=== PATIENT | female | born 1995 | race Hispanic/Latino ===

== ENCOUNTER 2020-10-14 21:51 | Emergency (ER) | payer OTHER ==
[~2020-10-14] VITALS: Ht 162.6 cm; Wt 66.0 kg
[2020-10-15] MEDS ORDERED: diphenhydrAMINE 50MG/ML VIAL (J1200) IV STA (01:07)
[2020-10-15] MEDS ORDERED: KETOROLAC 30 MG/ML 1ML VIAL IV ONE (01:10)
[2020-10-15] MEDS ORDERED: NS 500 ML IV ONE (01:10)
[2020-10-15] MEDS ORDERED: ONDANSETRON 4MG/2ML VIAL IV ONE (01:10)
[2020-10-15 02:19] LABS: BASO % 0.4 % (0.0-1.0); EOS % 0.3 % (0.0-3.0); HEMATOCRIT 41.9 % (36.0-47.0); LYMPH # 3.1 10^3/uL (1.5-5.0); LYMPH % 28.8 % (24.0-44.0); MEAN CORPUSCULAR HEMOGLOBIN 30.9 pg (27.0-33.0); MEAN CORPUSCULAR HGB CONC 33.4 g/dl (32.0-36.5); MEAN CORPUSCULAR VOLUME 92.5 fl (80.0-96.0); MONO # 0.9 10^3/uL (0.0-0.8); MONO % 8.2 % (2.0-8.0); NEUTROPHILS # 6.6 10^3/uL (1.5-8.5); NEUTROPHILS % 62.1 % (36.0-66.0); PLATELET COUNT, AUTOMATED 296 10^3/uL (150-450); RED BLOOD COUNT 4.53 10^6/uL (4.00-5.40); WHITE BLOOD COUNT 10.7 10^3/uL (4.0-10.0)
[2020-10-15 02:59] LABS: BLOOD UREA NITROGEN 9 MG/DL (7-18); CARBON DIOXIDE LEVEL 26 MEQ/L (21-32); CHLORIDE LEVEL 109 MEQ/L (98-107); CREATININE FOR GFR 0.56 MG/DL (0.55-1.30); FREE T4 1.18 NG/DL (0.76-1.46); GLOMERULAR FILTRATION RATE > 60.0 (>60); GLUCOSE, FASTING 81 MG/DL (70-100); MAGNESIUM LEVEL 2.2 MG/DL (1.8-2.4); POTASSIUM SERUM 4.7 MEQ/L (3.5-5.1); SODIUM LEVEL 141 MEQ/L (136-145)
[2020-10-15 03:06] LABS: AMPHETAMINES LEVEL URINE NEGATIVE (NEGATIVE); BARBITURATES URINE NEGATIVE (NEGATIVE); BENZODIAZEPINES URINE NEGATIVE (NEGATIVE); CANNABINOIDS URINE NEGATIVE (NEGATIVE); COCAINE METABOLITE URINE NEGATIVE (NEGATIVE); METHADONE URINE NEGATIVE (NEGATIVE); OPIATES URINE NEGATIVE (NEGATIVE); PHENCYCLIDINE URINE NEGATIVE (NEGATIVE)
--- NOTE | 2020-10-15 04:12 | REPVR ---
PROCEDURE INFORMATION: Exam: CT Head Without Contrast Exam date and time: 10/15/2020 2:48 AM Age: 25 years old Clinical indication: Pain; Headache not specified; Additional info: Worsening headaches TECHNIQUE: Imaging protocol: Computed tomography of the head without contrast. Radiation optimization: All CT scans at this facility use at least one of these dose optimization techniques: automated exposure control; mA and/or kV adjustment per patient size (includes targeted exams where dose is matched to clinical indication); or iterative reconstruction. COMPARISON: No relevant prior studies available. FINDINGS: Brain: Normal. No hemorrhage. Unremarkable white matter. No mass effect. Cerebral ventricles: No ventriculomegaly. Paranasal sinuses: Visualized sinuses are unremarkable. No fluid levels. Mastoid air cells: Visualized mastoid air cells are well aerated. Bones/joints: Unremarkable. No acute fracture. Soft tissues: Unremarkable. IMPRESSION: No acute intracranial abnormality. Electronically signed by: Jerzy Vasquez On 10/15/2020 03:29:00 AM
[2020-10-15 05:10] VITALS: BP 116/72
== END 2020-10-15 05:10 | disposition home or self-care (01) ==
LOC: M ED 21:51
DX: G43.909 Migraine, unspecified, not intractable, without status migrainosus (principal); Z88.2 Allergy status to sulfonamides
CPT/HCPCS: 70450; 80048; 80307; 81001; 83735; 84439; 84443; 84702; 85025; 87088; 87186; 96361; 96374; 96375; 99284; J1200; J1885; J2405

== ENCOUNTER 2021-03-22 02:38 | Emergency (ER) | payer OTHER ==
[~2021-03-22] VITALS: Ht 162.6 cm; Wt 65.9 kg
[2021-03-22] MEDS ORDERED: PYRI25TA2 PO (02:51)
[2021-03-22] MEDS ORDERED: MULTTAB20 PO (02:51)
[2021-03-22 03:59] LABS: BASO % 0.3 % (0.0-1.0); EOS % 0.3 % (0.0-3.0); HEMATOCRIT 37.8 % (36.0-47.0); HEMOGLOBIN 12.8 g/dl (12.0-15.5); LYMPH # 1.8 10^3/uL (1.5-5.0); LYMPH % 20.5 % (24.0-44.0); MEAN CORPUSCULAR HEMOGLOBIN 31.8 pg (27.0-33.0); MEAN CORPUSCULAR HGB CONC 33.9 g/dl (32.0-36.5); MEAN CORPUSCULAR VOLUME 93.8 fl (80.0-96.0); MONO # 0.7 10^3/uL (0.0-0.8); MONO % 7.3 % (2.0-8.0); NEUTROPHILS # 6.3 10^3/uL (1.5-8.5); NEUTROPHILS % 71.3 % (36.0-66.0); PLATELET COUNT, AUTOMATED 244 10^3/uL (150-450); RED BLOOD COUNT 4.03 10^6/uL (4.00-5.40); WHITE BLOOD COUNT 8.9 10^3/uL (4.0-10.0)
[2021-03-22] MEDS ORDERED: NS 1,000 ML IV ONE ×2 (04:15)
[2021-03-22 04:48] LABS: BLOOD UREA NITROGEN 6 MG/DL (7-18); CALCIUM LEVEL 8.7 MG/DL (8.5-10.1); CARBON DIOXIDE LEVEL 25 MEQ/L (21-32); CHLORIDE LEVEL 107 MEQ/L (98-107); CREATININE FOR GFR 0.42 MG/DL (0.55-1.30); GLOMERULAR FILTRATION RATE > 60.0 (>60); GLUCOSE, FASTING 88 MG/DL (70-100); HCG, SERUM QUANTITATIVE 40659 MIU/ML; POTASSIUM SERUM 3.9 MEQ/L (3.5-5.1); SODIUM LEVEL 137 MEQ/L (136-145)
[2021-03-22 06:50] VITALS: BP 130/59
== END 2021-03-22 06:52 | disposition home or self-care (01) ==
LOC: M ED 02:38
DX: O20.0 Threatened abortion (principal); O26.851 Spotting complicating pregnancy, first trimester; Z3A.11 11 weeks gestation of pregnancy; Z88.2 Allergy status to sulfonamides

== ENCOUNTER 2021-09-02 15:20 | Outpatient (CLI) | payer OTHER ==
[~2021-09-02] VITALS: Ht 162.6 cm; Wt 84.0 kg
[~2021-09-02 15:20] MED LIST: MULTTAB20 PO; PYRI25TA2 PO
== END 2021-09-02 16:43 | disposition home or self-care (01) ==
LOC: M LDO 15:20
PROVIDERS: ATTEND Obstetrics & Gynecology
DX: O36.8130 Decreased fetal movements, third trimester, not applicable or unspecified (principal); Z3A.34 34 weeks gestation of pregnancy; O26.893 Other specified pregnancy related conditions, third trimester; R10.2 Pelvic and perineal pain; Z88.2 Allergy status to sulfonamides
CPT/HCPCS: 59025; 76815; G0463

== ENCOUNTER 2021-10-12 06:01 | Inpatient (IN) | payer OTHER ==
[~2021-10-12] VITALS: Ht 162.6 cm; Wt 84.3 kg
[2021-10-12] VITALS (34 sets, daily range): BP systolic 115–173; BP diastolic 54–100
[2021-10-12] MEDS ORDERED: LACTATED RINGER'S 1000 ML IV STA (09:01)
[2021-10-12] MEDS ORDERED: CARBOPROST TROMETHAMINE 250 MCG/ML AMP IM PRN (09:05)
[2021-10-12] MEDS ORDERED: METHYLERGONOVINE MALEATE 0.2 MG/ML VIAL (J2210) IM PRN (09:05)
[2021-10-12] MEDS ORDERED: LR 1,000 ML IV SCH (09:05)
[2021-10-12] MEDS ORDERED: TRANEXAMIC ACID INJection 1,000 MG in NS 100 ML IV PRN (09:05)
[2021-10-12] MEDS ORDERED: OXYTOCIN INJ 10 UNITS/ML VIAL (J2590) IV PRN (09:05)
[2021-10-12] MEDS ORDERED: OXYTOCIN DRIP 30 UNITS in IV 1 EA IV PRN ×6 (09:05)
[2021-10-12] MEDS ORDERED: OXYTOCIN INJ 10 UNITS/ML VIAL (J2590) IM PRN (09:05)
[2021-10-12] MEDS ORDERED: LIDOCAINE 1% MDV 20ML VIAL INFIL PRN (09:05)
[2021-10-12] MEDS ORDERED: OXYTOCIN DRIP 30 UNITS in IV 1 EA IV SCH (09:05)
[2021-10-12 10:19] LABS: HEMATOCRIT 39.5 % (36.0-47.0); HEMOGLOBIN 13.4 g/dl (12.0-15.5); MEAN CORPUSCULAR HEMOGLOBIN 32.3 pg (27.0-33.0); MEAN CORPUSCULAR HGB CONC 33.9 g/dl (32.0-36.5); MEAN CORPUSCULAR VOLUME 95.2 fl (80.0-96.0); PLATELET COUNT, AUTOMATED 240 10^3/uL (150-450); RED BLOOD COUNT 4.15 10^6/uL (4.00-5.40); WHITE BLOOD COUNT 12.4 10^3/uL (4.0-10.0)
[2021-10-12] MEDS ORDERED: HOME MED LIST COMPLETE! XX SCH (10:35)
[2021-10-12] MEDS: LR 1,000 ML IV SCH ×3 (11:13→18:43)
[2021-10-12] MEDS ORDERED: FENTANYL 2MCG/ML ROPIVACAINE 0.2% IN 0.9% NACL 100ML IVBAG As Ordered ONE (14:26)
[2021-10-12] MEDS ORDERED: EPIDURAL/PCA KEYS XX PRN (15:25)
[2021-10-12] MEDS ORDERED: ONDANSETRON 4MG 2ML VIAL IV PRN (15:25)
[2021-10-12] MEDS ORDERED: NALOXONE INJ 0.4MG/1ML VIAL (J2310 PER 1MG) IV PRN (15:25)
[2021-10-12] MEDS ORDERED: diphenhydrAMINE 50MG/ML VIAL (J1200) IV PRN (15:25)
[2021-10-12] MEDS ORDERED: LR 500 ML IV PRN (15:25)
[2021-10-12] MEDS ORDERED: FENTANYL/ROPIVACAINE/NACL BAG 100 ML EPIDURAL SCH (15:25)
[2021-10-12] MEDS ORDERED: ePHEDrine SULFATE 25 MG/5 ML(5MG/ML) SYRINGE IVP PRN (15:25)
[2021-10-12] MEDS ORDERED: MOM 30ML SUSPENSION UDC PO PRN (22:05)
[2021-10-12] MEDS ORDERED: DIBUCAINE 1% OINTMENT 30GM TOP PRN (22:05)
[2021-10-13] MEDS: ACETAMINOPHEN 500 MG TAB PO PRN ×2 (01:04→13:45)
[2021-10-13 06:00] VITALS: BP 112/67
[2021-10-13] MEDS: DOCUSATE SODIUM 100MG CAPSULE PO SCH ×2 (07:32→21:21)
[2021-10-13] MEDS: PRENATAL VITAMINS CHEWABLE TABLET PO SCH (07:33)
[2021-10-13] MEDS: IBUPROFEN 800 MG TAB PO PRN ×2 (07:33→16:30)
[2021-10-13 17:58] VITALS: BP 106/68
[2021-10-14] MEDS: IBUPROFEN 800 MG TAB PO PRN (05:23)
[2021-10-14 06:00] VITALS: BP 118/67
[2021-10-14] MEDS: PRENATAL VITAMINS CHEWABLE TABLET PO SCH (09:15)
[2021-10-14] MEDS: DOCUSATE SODIUM 100MG CAPSULE PO SCH (09:15)
== END 2021-10-14 15:08 | disposition home or self-care (01) | DRG 807 ==
LOC: M LDO 06:01 → M LDI 08:57 → M OBS 23:53
PROVIDERS: ADMIT Obstetrics & Gynecology; ATTEND Obstetrics & Gynecology
PROC: 10E0XZZ Delivery of Products of Conception, External Approach (ICD-10-PCS; principal; 2021-10-12)
PROC: 0KQM0ZZ Repair Perineum Muscle, Open Approach (ICD-10-PCS; 2021-10-12)
PROC: 0UQMXZZ Repair Vulva, External Approach (ICD-10-PCS; 2021-10-12)
DX: O69.81X0 Labor and delivery complicated by cord around neck, without compression, not applicable or unspecified (principal); Z37.0 Single live birth; Z3A.40 40 weeks gestation of pregnancy; O70.1 Second degree perineal laceration during delivery; O71.82 Other specified trauma to perineum and vulva

== ENCOUNTER → 2022-01-06 | Outpatient (CLI) | payer OTHER ==
[~2022-01-06] MED LIST changes: +DOXY100T PO; +MINO50CA3 PO; +OXYC1TAB23 PO; +TRAM50TA2 PO; +ZOLO100T PO
== END ==
LOC: M RAD 11:58
PROVIDERS: ATTEND Obstetrics & Gynecology
DX: N61.0 Mastitis without abscess (principal)

== ENCOUNTER → 2022-01-06 | Outpatient (CLI) | payer OTHER ==
[~2022-01-06] MED LIST changes: +LIDOCAINE 1% MDV 20ML VIAL As Ordered ONE
[2022-01-06 14:25] VITALS: BP 131/78
== END ==
LOC: M IRPRO 13:56
PROVIDERS: ATTEND Obstetrics & Gynecology
DX: N61.1 Abscess of the breast and nipple (principal); N61.0 Mastitis without abscess

== ENCOUNTER 2022-01-13 12:52 | Observation (INO) | payer OTHER ==
[~2022-01-13] VITALS: Ht 162.6 cm; Wt 72.0 kg
[~2022-01-13 12:52] MED LIST changes: -DOXY100T PO; -LIDOCAINE 1% MDV 20ML VIAL As Ordered ONE; -MINO50CA3 PO; -OXYC1TAB23 PO; -TRAM50TA2 PO; -ZOLO100T PO
[2022-01-13] MEDS ORDERED: ZOLO100T PO (13:34)
[2022-01-13] MEDS ORDERED: DOXY100T PO (13:34)
[2022-01-13 16:41] LABS: BASO # 0.1 10^3/uL (0.0-0.2); BASO % 0.4 % (0.0-1.0); EOS # 0.2 10^3/uL (0.0-0.5); EOS % 1.5 % (0.0-3.0); HEMATOCRIT 40.5 % (36.0-47.0); LYMPH % 24.6 % (24.0-44.0); MEAN CORPUSCULAR HEMOGLOBIN 30.1 pg (27.0-33.0); MEAN CORPUSCULAR HGB CONC 32.1 g/dl (32.0-36.5); MEAN CORPUSCULAR VOLUME 93.8 fl (80.0-96.0); MONO # 0.8 10^3/uL (0.0-0.8); MONO % 6.6 % (2.0-8.0); NEUTROPHILS # 8.1 10^3/uL (1.5-8.5); NEUTROPHILS % 66.7 % (36.0-66.0); PLATELET COUNT, AUTOMATED 355 10^3/uL (150-450); RED BLOOD COUNT 4.32 10^6/uL (4.00-5.40); WHITE BLOOD COUNT 12.2 10^3/uL (4.0-10.0)
[2022-01-13] MEDS ORDERED: VANCOMYCIN HCL 1,500 MG in NS 250 ML IV ONE (16:45)
[2022-01-13] MEDS ORDERED: ONDANSETRON 4MG 2ML VIAL IV ONE (16:55)
[2022-01-13] MEDS ORDERED: MORPHINE 4 MG/ML 1ML VIAL/SYRINGE IV ONE (16:55)
[2022-01-13] MEDS ORDERED: NS 1,000 ML IV ONE (16:55)
[2022-01-13] MEDS ORDERED: VANCOMYCIN HCL 750 MG, VIAL MATE ADAPTER 1 EACH in D5W 250 ML IV ONE ×2 (17:00→18:00)
[2022-01-13 17:07] LABS: HCG, SERUM QUALITATIVE NEGATIVE (NEGATIVE)
[2022-01-13 17:11] LABS: BLOOD UREA NITROGEN 13 MG/DL (9-23); CALCIUM LEVEL 9.1 MG/DL (8.5-10.1); CARBON DIOXIDE LEVEL 26 MMOL/L (20-31); CHLORIDE LEVEL 105 MMOL/L (98-107); CREATININE FOR GFR 0.66 MG/DL (0.55-1.30); GLOMERULAR FILTRATION RATE > 60.0 (>60); GLUCOSE, FASTING 84 MG/DL (60-100); POTASSIUM SERUM 4.1 MMOL/L (3.5-5.1); SODIUM LEVEL 140 MMOL/L (136-145)
[2022-01-13 17:12] LABS: ERYTHROCYTE SEDIMENTATION RATE 33 mm/hr (0-20)
[2022-01-13 17:22] LABS: RSV AMPLIFICATION NEGATIVE (NEGATIVE)
[2022-01-13 17:25] LABS: PROTHROMBIN TIME 13.4 SECONDS (12.5-14.5)
[2022-01-13 17:26] LABS: PARTIAL THROMBOPLASTIN TIME 28.3 SECONDS (24.8-34.2)
[2022-01-13] MEDS ORDERED: LIDOCAINE 1% SDV 30ML VIAL As Ordered ONE (17:53)
[2022-01-13] MEDS ORDERED: BUPIVACAINE HCL 0.25% 30ML VIAL As Ordered ONE (17:53)
[2022-01-13] MEDS ORDERED: OXYC1TAB23 PO (18:10)
[2022-01-13] MEDS ORDERED: HOME MED LIST COMPLETE! XX SCH (18:10)
[2022-01-13] MEDS ORDERED: fentaNYL 250 MCG/5 ML INJECTION As Ordered ONE (18:40)
[2022-01-13] MEDS ORDERED: MIDAZOLAM INJ 2MG/2ML VIAL (J2250 PER 1MG) As Ordered ONE (18:40)
[2022-01-13] MEDS ORDERED: ONDANSETRON 4MG 2ML VIAL As Ordered ONE (18:41)
[2022-01-13] MEDS ORDERED: dexameTHASONE 4 MG/ML 1ML VIAL (J1100 PER 1MG) As Ordered ONE (18:41)
[2022-01-13] MEDS ORDERED: METOCLOPRAMIDE INJ 10MG/2ML VIAL (J2765 PER 1) As Ordered ONE (18:41)
[2022-01-13] MEDS ORDERED: propofoL 200 MG/20 ML VIAL As Ordered ONE (18:41)
[2022-01-13] MEDS ORDERED: LIDOCAINE 2% 100MG/5ML SDV (FOR ANES.) As Ordered ONE (18:41)
[2022-01-13] MEDS ORDERED: ROCURONIUM BROMIDE 50 MG/5 ML VIAL As Ordered ONE (18:44)
[2022-01-13] MEDS ORDERED: ACETAMINOPHEN 1000MG 100ML IV BAG As Ordered ONE (18:48)
[2022-01-13] MEDS ORDERED: SUGAMMADEX SODIUM 500 MG/5 ML VIAL (BRIDION) As Ordered ONE (19:29)
[2022-01-13] MEDS ORDERED: oxyCODONE 5MG TAB PO PRN (19:55)
[2022-01-13] MEDS ORDERED: LR 1,000 ML IV SCH ×2 (19:55)
[2022-01-13] MEDS ORDERED: fentaNYL 100 MCG/2 ML INJECTION IV PRN (19:55)
[2022-01-13] MEDS ORDERED: MORPHINE 2 MG/ML 1ML VIAL IV PRN ×2 (19:55)
[2022-01-13] MEDS ORDERED: ONDANSETRON 4MG 2ML VIAL IV PRN ×3 (19:55)
[2022-01-13] MEDS ORDERED: PIPERACILLIN/TAZOBACTAM SOD 3.375 GM in D5W MINI-BAG PLUS 50 ML IV ONE (20:10)
[2022-01-13] MEDS: oxyCODONE 5MG TAB PO PRN ×2 (20:12→20:43)
[2022-01-13] MEDS: fentaNYL 100 MCG/2 ML INJECTION IV PRN ×3 (20:13→20:30)
[2022-01-13 21:15] VITALS: BP 121/76
[2022-01-13 21:45] VITALS: BP 118/75
[2022-01-13] MEDS: LR 1,000 ML IV SCH (22:08)
[2022-01-13 22:15] VITALS: BP 114/71
[2022-01-13 23:15] VITALS: BP 111/62
[2022-01-13] MEDS: VANCOMYCIN HCL 1,000 MG, VIAL MATE ADAPTER 1 EACH in D5W 250 ML IV SCH (23:42)
[2022-01-13] MEDS: traMADol 50 MG TAB PO PRN (23:42)
[2022-01-14] VITALS (8 sets, daily range): BP systolic 105–124; BP diastolic 64–80
[2022-01-14 06:02] LABS: BASO % 0.2 % (0.0-1.0); HEMATOCRIT 37.3 % (36.0-47.0); HEMOGLOBIN 12.1 g/dl (12.0-15.5); LYMPH # 1.7 10^3/uL (1.5-5.0); LYMPH % 15.6 % (24.0-44.0); MEAN CORPUSCULAR HEMOGLOBIN 30.3 pg (27.0-33.0); MEAN CORPUSCULAR HGB CONC 32.4 g/dl (32.0-36.5); MEAN CORPUSCULAR VOLUME 93.5 fl (80.0-96.0); MONO # 0.7 10^3/uL (0.0-0.8); MONO % 5.9 % (2.0-8.0); NEUTROPHILS # 8.6 10^3/uL (1.5-8.5); PLATELET COUNT, AUTOMATED 314 10^3/uL (150-450); RED BLOOD COUNT 3.99 10^6/uL (4.00-5.40)
[2022-01-14] MEDS: VANCOMYCIN HCL 1,000 MG, VIAL MATE ADAPTER 1 EACH in D5W 250 ML IV SCH ×3 (07:41→21:19)
[2022-01-14] MEDS: traMADol 50 MG TAB PO PRN ×3 (07:42→21:19)
[2022-01-14] MEDS: ACETAMINOPHEN TAB 650MG DOSE (2X325MG) PO PRN ×2 (11:03→20:01)
[2022-01-14] MEDS: LR 1,000 ML IV SCH ×2 (11:03→21:20)
[2022-01-15] MEDS ORDERED: traMADol 50 MG TAB PO SCH
[2022-01-15 02:00] VITALS: BP 106/65
[2022-01-15] MEDS: traMADol 50 MG TAB PO PRN ×2 (04:10→12:22)
[2022-01-15] MEDS: VANCOMYCIN HCL 1,000 MG, VIAL MATE ADAPTER 1 EACH in D5W 250 ML IV SCH (04:10)
[2022-01-15 06:00] VITALS: BP 105/65
[2022-01-15 07:51] LABS: BASO # 0.1 10^3/uL (0.0-0.2); BASO % 0.6 % (0.0-1.0); EOS # 0.2 10^3/uL (0.0-0.5); EOS % 2.1 % (0.0-3.0); HEMATOCRIT 35.5 % (36.0-47.0); HEMOGLOBIN 11.3 g/dl (12.0-15.5); LYMPH # 3.8 10^3/uL (1.5-5.0); LYMPH % 44.8 % (24.0-44.0); MEAN CORPUSCULAR HEMOGLOBIN 30.4 pg (27.0-33.0); MEAN CORPUSCULAR HGB CONC 31.8 g/dl (32.0-36.5); MEAN CORPUSCULAR VOLUME 95.4 fl (80.0-96.0); MONO # 0.7 10^3/uL (0.0-0.8); MONO % 8.3 % (2.0-8.0); NEUTROPHILS # 3.7 10^3/uL (1.5-8.5); NEUTROPHILS % 43.8 % (36.0-66.0); PLATELET COUNT, AUTOMATED 277 10^3/uL (150-450); RED BLOOD COUNT 3.72 10^6/uL (4.00-5.40); WHITE BLOOD COUNT 8.4 10^3/uL (4.0-10.0)
[2022-01-15] MEDS: ACETAMINOPHEN TAB 650MG DOSE (2X325MG) PO PRN (08:40)
[2022-01-15] MEDS ORDERED: MINOCYCLINE 50 MG CAP PO SCH ×2 (09:00)
[2022-01-15] MEDS ORDERED: DOCUSATE SODIUM 100MG CAPSULE PO SCH (09:00)
[2022-01-15] MEDS ORDERED: MIRALAX *UNIT DOSE* 17GM PACKET PO SCH (09:00)
[2022-01-15] MEDS ORDERED: TRAM50TA2 PO (10:55)
[2022-01-15] MEDS ORDERED: MINO50CA3 PO (10:55)
== END 2022-01-15 13:15 | disposition home or self-care (01) ==
LOC: M ED 12:52 → M ED INP 12:53 → M MS5PR 21:13
PROVIDERS: ADMIT Surgery; ATTEND Surgery
DX: N61.1 Abscess of the breast and nipple (principal); F41.9 Anxiety disorder, unspecified; F32.A Depression, unspecified; Z88.2 Allergy status to sulfonamides; Z79.899 Other long term (current) drug therapy; E28.2 Polycystic ovarian syndrome
CPT/HCPCS: 10060; 36415; 80048; 80202; 83605; 84703; 85025; 85610; 85652; 85730; 86140; 87040; 87070; 87075; 87186; 87205; 87631; 87641; 96365; 96366; 96367; 96375; 96376; 99284; J0131; J1100; J2250; J2270; J2405; J2543; J2765; J3010; J3370

== ENCOUNTER 2022-06-07 16:19 | Emergency (ER) | payer OTHER ==
[~2022-06-07] VITALS: Ht 162.6 cm; Wt 71.4 kg
[~2022-06-07 16:19] MED LIST changes: +DOXY100T PO; +MINO50CA3 PO; +OXYC1TAB23 PO; +TRAM50TA2 PO; +ZOLO100T PO
[2022-06-07 16:20] VITALS: BP 128/78
[2022-06-07] MEDS ORDERED: ONDA4TAB6 PO (18:39)
[2022-06-07] MEDS ORDERED: ONDANSETRON 4MG ORAL DISINTEGRATING TAB PO ONE (18:40)
== END 2022-06-07 18:47 | disposition home or self-care (01) ==
LOC: M ED 16:19
DX: R07.0 Pain in throat (principal); B34.9 Viral infection, unspecified; F32.9 Major depressive disorder, single episode, unspecified; Z79.899 Other long term (current) drug therapy; Z88.2 Allergy status to sulfonamides

== ENCOUNTER → 2022-07-09 | Outpatient (CLI) | payer OTHER ==
[~2022-07-09] MED LIST changes: +GASTROGRAFIN SOLUTION 30ML As Ordered ONE; +ONDA4TAB6 PO
== END ==
LOC: M RAD 10:12
PROVIDERS: ATTEND Physician Assistant
DX: N82.3 Fistula of vagina to large intestine (principal)
CPT/HCPCS: 74270; Q9963

== ENCOUNTER → 2023-05-29 | Outpatient (CLI) | payer OTHER ==
[~2023-05-29] MED LIST changes: -GASTROGRAFIN SOLUTION 30ML As Ordered ONE
== END ==
LOC: M LAB 10:09
PROVIDERS: ATTEND Physician Assistant Medical
DX: Z34.91 Encounter for supervision of normal pregnancy, unspecified, first trimester (principal)